=== PATIENT | male | born 1965 | race Hispanic/Latino ===

== ENCOUNTER 2021-03-19 08:34 | Emergency (ER) | payer MEDICARE ==
[2021-03-19 08:43] VITALS: BP 131/76
--- NOTE | 2021-03-19 14:44 | Emergency Department Report ---
Blank Doc - Documentation Documentation: This is a 55-year-old male that was consulted with caregiver for hypotension w hich was about 70/40. Caregiver stated that ambulance came and and blood pressure was also low. home appliance washing machine mechanic stated that patient has cloudy dark stools. Otherwise caregiver denies any symptoms or complaints. 1- This is a initial triage assessment/medical screening only. Full assessment and work-up will be completed once the patient is in proper hospital gown, ED bed and in a private room setting. This initial assessment/diagnostic orders/clinical plan/ treatment(s) is/are subject to change based on pt's health status, clinical progression and re-assessment by fellow clinical providers in the ED. Further treatment and workup at subsequent clinical providers discretion. Patient/guardians urged not to elope from ED as their condition may be serious if not clinically assessed and managed. 2-labs 3-UA 4-EKG The patient was evaluated in the emergency department for symptoms described in the history of present illness. He/she was evaluated in the context of the global COVID-19 pandemic, which necessitated consideration that the patient might be at risk for infection with the virus that causes COVID-19. Institutional protocols and algorithms that pertain to the evaluation of patien ts at risk for COVID-19 are in a state of rapid change based on information released by regulatory bodies including the CDC and federal and state organizations. These policies and algorithms were followed during the patient's care in the emergency department. Please note that these policies, procedures and recommendations changed on a rapid basis.
[2021-03-19 16:01] LABS: Basophils % (Auto) 0.3 % (0.0-1.8); Eosinophils % (Auto) 0.4 % (0.0-4.3); Hematocrit 41.1 % (35.5-45.6); Hemoglobin 13.5 gm/dl (11.8-15.2); Lymphocytes # (Auto) 1.2 K/mm3 (1.2-5.4); Lymphocytes % (Auto) 11.7 % (13.4-35.0); Mean Corpuscular HGB Conc 33 % (32-34); Mean Corpuscular Volume 86 fl (84-94); Monocytes # (Auto) 0.6 K/mm3 (0.0-0.8); Monocytes % (Auto) 6.2 % (0.0-7.3); Platelet Count 293 K/mm3 (140-440); Red Blood Count 4.81 M/mm3 (3.65-5.03); Red Cell Distribution Width 14.5 % (13.2-15.2)
[2021-03-19 16:09] LABS: INR 0.92 (0.87-1.13)
[2021-03-19 16:10] LABS: Partial Thromboplastin Time 31.9 Sec. (24.2-36.6)
[2021-03-19 16:22] LABS: Alanine Aminotransferase 6 units/L (7-56); Albumin 4.3 g/dL (3.9-5); BUN/Creatinine Ratio 27; Blood Urea Nitrogen 24 mg/dL (9-20); Calcium 8.8 mg/dL (8.4-10.2); Hemolysis Index 9
--- NOTE | 2021-03-19 23:14 | Emergency Department Report ---
ED General Adult HPI - General Chief complaint: Weakness Stated complaint: Hypotensive PUI?: No Time Seen by Provider: 03/19/21 14:48 Source: patient, family ([facility] caregiver), EMS Mode of arrival: Stretcher Limitations: No Limitations, Other (dementia) - History of Present Illness Initial comments: Chief complaint: Low blood pressure HPI: This is a 55-year-old male with history of dementia, hypothyroidism, BPH who presents with low blood pressure readings. Blood pressure 80/40, 96/56 at personal halfway according to verbal report. Caregiver Krista was extremely helpful. She gave a full history. I spoke with her per phone. He has been in normal state of health. He has been at the personal halfway for over 1 year. She gave a list of his medications which included Synthroid, Zyprexa, Linzess, finasteride, Flomax, clozapine, antihistamine for allergies.. Mr. Costa does not have any complaints. He does not have a history of high blood pressure. He is not on antihypertensive medication. -: days(s) (Two low blood pressure readings at personal halfway) Severity scale (0 -10): 0 Consistency: now resolved Improves with: none Worsens with: none Associated Symptoms: denies other symptoms - Related Data Allergies Allergy/AdvReac Type Severity Reaction Status Date / Time No Known Allergies Allergy Unverified 03/19/21 08:43 ED Review of Systems ROS: Stated complaint: Hypotensive Other details as noted in HPI Comment: Unobtainable due to pts medical conditions (Patient able to say yes or no. He denies any complaints. Limited history due to dementia.) ED Past Medical Hx - Past Medical History Previous Medical History?: Yes Hx Dementia: Yes Additional medical history: BPH, hypothyroidism - Surgical History Additional Surgical History: Unable to obtain - Family History Family history: no significant - Social History Smoking Status: Never Smoker ED Physical Exam - General Limitations: No Limitations General appearance: alert, in no apparent distress, other (Pleasant jovial no acute distress nontoxic-appearing) - Head Head exam: Present: atraumatic, normocephalic - Eye Eye exam: Present: normal appearance - ENT ENT exam: Present: mucous membranes moist - Neck Neck exam: Present: normal inspection, full ROM - Respiratory Respiratory exam: Present: normal lung sounds bilaterally. Absent: respiratory distress, wheezes, rales, rhonchi - Cardiovascular Cardiovascular Exam: Present: regular rate, normal rhythm, normal heart sounds. Absent: systolic murmur, diastolic murmur, rubs, gallop - GI/Abdominal GI/Abdominal exam: Present: soft, normal bowel sounds. Absent: distended, tenderness, guarding, rebound - Rectal Rectal exam: Present: deferred - Extremities Exam Extremities exam: Present: normal inspection - Back Exam Back exam: Present: normal inspection - Neurological Exam Neurological exam: Present: alert, other (Oriented to name) - Psychiatric Psychiatric exam: Present: normal affect, normal mood - Skin Skin exam: Present: warm, dry, intact, normal color. Absent: rash ED Course Vital Signs 03/19/21 08:37 Temperature 98.1 F Pulse Rate 84 Respiratory 16 Rate Blood Pressure 131/76 [Right] O2 Sat by Pulse 95 Oximetry ED Medical Decision Making - Lab Data Result diagrams: 03/19/21 15:36 03/19/21 15:36 Abnormal Lab Results 03/19/21 03/19/21 03/19/21 15:36 15:36 15:36 WBC 10.5 RBC 4.81 Hgb 13.5 Hct 41.1 MCV 86 MCH 28 MCHC 33 RDW 14.5 Plt Count 293 Lymph % (Auto) 11.7 L Mayes % (Auto) 6.2 Eos % (Auto) 0.4 Baso % (Auto) 0.3 Lymph # (Auto) 1.2 Mayes # (Auto) 0.6 Eos # (Auto) 0.0 Baso # (Auto) 0.0 Seg Neutrophils % 81.4 H Seg Neutrophils # 8.5 H PT 13.4 INR 0.92 APTT 31.9 Sodium 137 Potassium 4.7 Chloride 103.4 Carbon Dioxide 19 L Anion Gap 19 BUN 24 H Creatinine 0.9 Estimated GFR > 60 BUN/Creatinine Ratio 27 Glucose 102 H Calcium 8.8 Magnesium Total Bilirubin 0.20 AST 16 ALT 6 L Alkaline Phosphatase 114 Total Protein 8.3 H Albumin 4.3 Albumin/Globulin Ratio 1.1 03/19/21 15:36 WBC RBC Hgb Hct MCV MCH MCHC RDW Plt Count Lymph % (Auto) Mayes % (Auto) Eos % (Auto) Baso % (Auto) Lymph # (Auto) Mayes # (Auto) Eos # (Auto) Baso # (Auto) Seg Neutrophils % Seg Neutrophils # PT INR APTT Sodium Potassium Chloride Carbon Dioxide Anion Gap BUN Creatinine Estimated GFR BUN/Creatinine Ratio Glucose Calcium Magnesium 2.20 Total Bilirubin AST ALT Alkaline Phosphatase Total Protein Albumin Albumin/Globulin Ratio - Medical Decision Making Abnormal blood pressure readings at home. Patient has been normotensive throughout his 14-hour observation emergency department. Work-up unremarkable. CBC chemistry PT PTT within normal limits. I reviewed [facility] report from [facility]. Patient was ambulatory at the scene. Patient ambulated to the stretcher. Documented vital signs per EMS blood pressu re 122/80, pulse 87 respiratory rate 14. Upon arrival patient was normotensive with blood pressure 131/76. I suspect adverse effect of medication. Patient is on 2 medications for BPH including finasteride and Flomax. I urged caregiver to remove 1 of these medications. Also suspect that patient had abnormal sinus blood pressure cuff. Likely had an appropriate likely has 2 large blood pressure cuff. Second consideration to large blood pressure cuff. Critical care attestation.: If time is entered above; I have spent that time in minutes in the direct care of this critically ill patient, excluding procedure time. ED Disposition Clinical Impression: Medication adverse effect Disposition: 01 HOME / SELF CARE / HOMELESS Is pt being admited?: No Does the pt Need Aspirin: No Condition: Stable Additional Instructions: Finasteride and Flomax both can cause hypotension. Please consider stopping 1 of these medications. Referrals: PRIMARY CARE, [Primary Care Provider] - 3-5 Days
== END 2021-03-19 23:36 | disposition home or self-care (01) ==
LOC: ED 08:34
DX: R03.1 Nonspecific low blood-pressure reading (principal); T50.905A Adverse effect of unspecified drugs, medicaments and biological substances, initial encounter; Y92.89 Other specified places as the place of occurrence of the external cause
CPT/HCPCS: 36415; 80053; 83735; 85025; 85610; 85730; 99283

== ENCOUNTER 2021-03-27 07:51 | Emergency (ER) | payer MEDICARE ==
[2021-03-27 08:51] VITALS: BP 129/76
--- NOTE | 2021-03-27 11:07 | Emergency Department Report ---
ED Fall HPI - General Chief Complaint: Fall Stated Complaint: FALL Time Seen by Provider: 03/27/21 10:51 Source: patient Mode of arrival: Ambulatory Limitations: No Limitations - History of Present Illness Initial Comments: Patient is a 55-year-old male presents emergency room complaints of a fall that occurred 4 days ago. Patient states that he got out of the shower and was drying himself off and was putting on his pants when he fell backwards. He states that he hit his lower back against the bathroom floor. He denies any other injury. He denies hitting his head, loss of consciousness, vomiting, vision changes, numbness, unilateral weakness, bowel or bladder incontinence after the fall. No allergies to medications. - Related Data Previous Rx's Medication Instructions Recorded Last Taken Type Acetaminophen [Tylenol] 650 mg PO Q8HR PRN #20 cap 03/27/21 Unknown Rx Allergies Allergy/AdvReac Type Severity Reaction Status Date / Time No Known Allergies Allergy Unverified 03/19/21 08:43 ED Review of Systems ROS: Stated complaint: FALL Other details as noted in HPI Comment: All other systems reviewed and negative ED Past Medical Hx - Past Medical History Hx Dementia: Yes Additional medical history: BPH, hypothyroidism - Surgical History Additional Surgical History: Unable to obtain - Social History Smoking Status: Never Smoker - Medications Home Medications: Home Medications Medication Instructions Recorded Confirmed Last Taken Type Acetaminophen [Tylenol] 650 mg PO Q8HR PRN #20 cap 03/27/21 Unknown Rx ED Physical Exam - General Limitations: No Limitations General appearance: alert, in no apparent distress - Head Head exam: Present: atraumatic, normocephalic - Eye Eye exam: Present: normal appearance, PERRL, EOMI - ENT ENT exam: Present: mucous membranes moist - Neck Neck exam: Present: normal inspection, full ROM. Absent: tenderness, meningismus - Respiratory Respiratory exam: Present: normal lung sounds bilaterally, other (no rib ttp bilaterally). Absent: respiratory distress, wheezes, rales, rhonchi, stridor, chest wall tenderness, accessory muscle use, decreased breath sounds, prolonged expiratory - Cardiovascular Cardiovascular Exam: Present: regular rate, normal rhythm, normal heart sounds. Absent: systolic murmur, diastolic murmur, rubs, gallop - Back Exam Back exam: Present: normal inspection, full ROM, paraspinal tenderness (lumbar), vertebral tenderness (lumbar) - Neurological Exam Neurological exam: Present: alert, other (oriented to person). Absent: motor sensory deficit - Psychiatric Psychiatric exam: Present: normal affect, normal mood - Skin Skin exam: Present: warm, dry, intact ED Course Vital Signs 03/27/21 08:50 Temperature 97.4 F L Pulse Rate 85 Respiratory 16 Rate Blood Pressure 129/76 [Right] O2 Sat by Pulse 98 Oximetry ED Medical Decision Making - Radiology Data Radiology results: report reviewed Ordering Physician: MO GILL Date of Service: 03/27/21 Procedure(s): XR spine lumbosacral 2-3V Accession Number(s): [id number] cc: MO GILL Fluoro Time In Minutes: LUMBOSACRAL SPINE 3 VIEWS INDICATION: fall, low back pain. COMPARISON: None. IMPRESSION: Normal alignment. No significant discogenic DJD or facet arthropathy. Mild symmetric degenerative changes are noted at the SI joints. No acute osseous or soft tissue abnormality. Signer Name: Dawson Wolfe Jr, MD Signed: 03/27/2021 11:16 AM Workstation Name: [id number] Transcribed By: TTR Dictated By: DAWSON WOLFE JR, MD Electronically Authenticated By: DAWSON WOLFE JR, MD Signed Date/Time: 03/27/21 1116 DD/ 1115 TD/TT: - Medical Decision Making Patient is a 55-year-old male presents emergency room complaints of a fall that occurred 4 days ago. Patient states that he got out of the shower and was drying himself off and was putting on his pants when he fell backwards. He states that he hit his lower back against the bathroom floor. He denies any other injury. He denies hitting his head, loss of consciousness, vomiting, vision changes, numbness, unilateral weakness, bowel or bladder incontinence after the fall. No allergies to medications. Vitals are stable. On exam patient has bilateral paraspinal and mild midline lumbar tenderness palpation, no step-offs, no deformities, no focal neuro deficits, ambulatory without difficulty. XR lumbar spine: IMPRESSION: Normal alignment. No significant discogenic DJD or facet arthropathy. Mild symmetric degenerative changes are noted at the SI joints. No acute osseous or soft tissue abnormality. Patient has history of dementia and is oriented to himself, this is patient's baseline according to chart review. Discussed all findings with patient. Advised patient please take medication as prescribed as needed. Follow-up with your primary care doctor. Follow-up with a commercial marketing specialist if symptoms or not improving. Return to emergency room for any new or worsening symptoms. Critical care attestation.: If time is entered above; I have spent that time in minutes in the direct care of this critically ill patient, excluding procedure time. ED Disposition Clinical Impression: Fall Qualifiers: Encounter type: initial encounter Qualified Code(s): W19.XXXA - Unspecified fall, initial encounter Back pain Qualifiers: Back pain location: low back pain Chronicity: acute Back pain laterality: bilateral Sciatica presence: without sciatica Qualified Code(s): M54.50 - Low back pain, unspecified Disposition: 01 HOME / SELF CARE / HOMELESS Is pt being admited?: No Does the pt Need Aspirin: No Condition: Stable Instructions: Acute Back Pain, Adult Additional Instructions: please take medication as prescribed as needed. Follow-up with your primary care doctor. Follow-up with a commercial marketing specialist if symptoms or not improving. Return to emergency room for any new or worsening symptoms. Prescriptions: Acetaminophen [Tylenol] 650 mg PO Q8HR PRN #20 cap PRN Reason: pain Referrals: PRIMARY CAREMD [Primary Care Provider] - 3-5 Days JS PATRICIA II, MD [Staff Physician] - 3-5 Days Time of Disposition: 11:24 Print Language: BELARUSIAN
--- NOTE | 2021-03-27 11:21 | XRay Report ---
LUMBOSACRAL SPINE 3 VIEWS INDICATION: fall, low back pain. COMPARISON: None. IMPRESSION: Normal alignment. No significant discogenic DJD or facet arthropathy. Mild symmetric de generative changes are noted at the SI joints. No acute osseous or soft tissue abnormality. Signer Name: Dawson Wolfe Jr, MD Signed: 03/27/2021 11:16 AM Workstation Name: [id number]
== END 2021-03-27 11:45 | disposition home or self-care (01) ==
LOC: ED 07:51
DX: M54.50 Low back pain, unspecified (principal); W19.XXXA Unspecified fall, initial encounter; Y93.89 Activity, other specified; Y92.89 Other specified places as the place of occurrence of the external cause; Y99.8 Other external cause status
CPT/HCPCS: 72100; 99283

== ENCOUNTER 2021-05-01 09:41 | Emergency (ER) | payer MEDICARE ==
[2021-05-01 09:44] VITALS: BP 116/72
[2021-05-01] MEDS ORDERED: SODIUM CHLORIDE 0.9% 1000 ML 1,000 ML IV ONE (10:16)
[2021-05-01] MEDS ORDERED: MORPHINE 4 MG/1 ML INJ IV ONE (10:16)
[2021-05-01] MEDS ORDERED: ONDANSETRON 4 MG/2 ML INJ IV ONE (10:16)
--- NOTE | 2021-05-01 10:20 | Emergency Department Report ---
ED Abdominal Pain HPI - General Chief Complaint: Back Pain/Injury Stated Complaint: R SIDE BACK PAIN Time Seen by Provider: 05/01/21 10:07 Source: patient, EMS Mode of arrival: Stretcher Limitations: Altered Mental Status - History of Present Illness Initial Comments: Patient is 55 years old male with history of dementia. Patient brought to the emergency room via EMS for evaluation of back pain. Upon my interviewing the patient patient is pointing to the right upper quadrant area stating that is bothering him since this morning. He denied any other pain. He denied nausea vomiting or diarrhea. He also denied any fever or chills. MD Complaint: abdominal pain -: This morning Location: RUQ Migration to: no migration Severity scale (0 -10): 5 - Related Data Previous Rx's Medication Instructions Recorded Last Taken Type Acetaminophen [Tylenol] 650 mg PO Q8HR PRN #20 cap 03/27/21 Unknown Rx Allergies Allergy/AdvReac Type Severity Reaction Status Date / Time No Known Allergies Allergy Unverified 03/19/21 08:43 ED Review of Systems ROS: Stated complaint: R SIDE BACK PAIN Other details as noted in HPI Comment: All other systems reviewed and negative Constitutional: denies: chills, fever Respiratory: denies: cough, shortness of breath, SOB with exertion Cardiovascular: denies: chest pain Gastrointestinal: abdominal pain. denies: nausea, vomiting, diarrhea Musculoskeletal: back pain Neurological: denies: weakness ED Past Medical Hx - Past Medical History Hx Dementia: Yes Additional medical history: BPH, hypothyroidism - Surgical History Additional Surgical History: Unable to obtain - Social History Smoking Status: Never Smoker - Medications Home Medications: Home Medications Medication Instructions Recorded Confirmed Last Taken Type Acetaminophen [Tylenol] 650 mg PO Q8HR PRN #20 cap 03/27/21 Unknown Rx ED Physical Exam - General Limitations: Altered Mental Status General appearance: alert, in no apparent distress - Head Head exam: Present: atraumatic, normocephalic, normal inspection - Eye Eye exam: Present: normal appearance - ENT ENT exam: Present: mucous membranes dry - Neck Neck exam: Present: normal inspection, full ROM. Absent: tenderness, meningismus - Respiratory Respiratory exam: Present: normal lung sounds bilaterally - Cardiovascular Cardiovascular Exam: Present: regular rate, normal rhythm, normal heart sounds - GI/Abdominal GI/Abdominal exam: Present: soft, normal bowel sounds. Absent: distended, tenderness, guarding, rebound, rigid, organomegaly, mass, bruit, pulsatile mass - Extremities Exam Extremities exam: Present: normal inspection, full ROM, normal capillary refill. Absent: tenderness - Back Exam Back exam: Present: normal inspection, full ROM. Absent: CVA tenderness (R), CVA tenderness (L) - Neurological Exam Neurological exam: Present: alert, oriented X3, CN II-XII intact - Psychiatric Psychiatric exam: Present: normal mood - Skin Skin exam: Present: warm, intact, normal color ED Course Vital Signs 05/01/21 05/01/21 09:41 11:25 Temperature 98 F Pulse Rate 94 H Respiratory 18 Rate Blood Pressure 116/72 [Left] O2 Sat by Pulse 98 99 Oximetry ED Medical Decision Making - Lab Data Result diagrams: 05/01/21 10:35 05/01/21 10:35 - Radiology Data Radiology results: report reviewed CT abdomen pelvis w con INDICATION: Abdominal Pain OMNI 300 100 ML. COMPARISON: None TECHNIQUE: Abdominal and pelvic CT exam performed. All CT scans at this location are performed using CT dose reduction for ALARA by means of automated exposure control. FINDINGS: CT ABDOMEN and PELVIS: Lung Bases: D ependent atelectasis. Liver: No significant abnormality. Biliary: No significant abnormality. Spleen: No significant abnormality. Pancreas: No significant abnormality. Adrenals: No significant abnormality. Kidneys: Severe bilateral hydroureteronephrosis with urothelial enhancment. Bladder: Significant circumferential thickening. Suprapubic catheter in place. Lymphatics: No lymphadenopathy. Vasculature: No significant abnormality. Bowel: No significant abnormality. Appendix is nonvisualized. However, no inflammatory changes in the right lower quadrant to suggest appendicitis. Pelvis: No significant abnormality. Osseous Structures: No aggressive osseous lesion. Additional Findings: None IMPRESSION: 1. Significant circumferential bladder thickening concerning for cystitis. Severe bilateral hydroureteronephrosis with urothelial enhancment which could be related to ascending infection. Correlate for urinalysis. Signer Name: Sherwin Gloria MD Signed: 05/01/2021 11:18 AM Workstation Name: [id number] - Medical Decision Making Patient is 55 years old male with history of dementia. Patient brought to the emergency room via EMS for evaluation of back pain. Upon my interviewing the patient patient is pointing to the right upper quadrant area stating that is bothering him since this morning. He denied any other pain. He denied nausea vomiting or diarrhea. He also denied any fever or chills. Patient received morphine, Zofran and normal saline. Labs showed a leukocytosis of 12,000. CT abdomen and pelvis with IV contrast showed right pyelonephritis and thus most likely the cause of patient pain. Patient received Rocephin 1 g IV. Urinalysis showed UTI with white blood cells of more than 118. Patient given prescription for ciprofloxacin and advised to follow-up with his primary doctor in the next 2 to 3 days and to return to the ER if he develop any new symptoms. Critical care attestation.: If time is entered above; I have spent that time in minutes in the direct care of this critically ill patient, excluding procedure time. ED Disposition Clinical Impression: Acute abdominal pain, Acute pyelonephritis, UTI (urinary tract infection) Disposition: 01 HOME / SELF CARE / HOMELESS Is pt being admited?: No Condition: Stable Instructions: Pyelonephritis, Adult, Urinary Tract Infection, Adult, [id number], Abdominal Pain, Adult, [id number] Referrals: PRIMARY CARE, [Primary Care Provider] - 3-5 Days
[2021-05-01 11:05] LABS: Basophils # (Auto) 0.1 K/mm3 (0.0-0.1); Basophils % (Auto) 0.7 % (0.0-1.8); Eosinophils # (Auto) 0.3 K/mm3 (0.0-0.4); Eosinophils % (Auto) 2.4 % (0.0-4.3); Hematocrit 36.8 % (35.5-45.6); Lymphocytes # (Auto) 1.5 K/mm3 (1.2-5.4); Lymphocytes % (Auto) 12.2 % (13.4-35.0); Mean Corpuscular HGB Conc 35 % (32-34); Mean Corpuscular Volume 85 fl (84-94); Monocytes # (Auto) 1.2 K/mm3 (0.0-0.8); Monocytes % (Auto) 9.7 % (0.0-7.3); Red Blood Count 4.33 M/mm3 (3.65-5.03); Red Cell Distribution Width 14.5 % (13.2-15.2)
[2021-05-01 11:09] LABS: Platelet Count 243 K/mm3 (140-440)
[2021-05-01 11:20] LABS: Alanine Aminotransferase 11 units/L (7-56); Albumin 3.4 g/dL (3.9-5); BUN/Creatinine Ratio 17; Blood Urea Nitrogen 22 mg/dL (9-20); Calcium 9.2 mg/dL (8.4-10.2); Hemolysis Index 81
[2021-05-01 11:49] LABS: Bilirubin,Direct < 0.2 mg/dL (0-0.2)
[2021-05-01] MEDS ORDERED: cefTRIAXone/NS 1 GM/50 ML 1 GM/50 ML BAG IV ONE (12:40)
[2021-05-01 13:15] LABS: Bacteria,Urine 1+ /HPF (Negative); Bilirubin,Urine NEG (Negative); Blood,Urine SM (Negative); Color,Urine Yellow (Yellow); Mucus,Urine FEW /HPF; Urobilinogen,Urine < 2.0 mg/dL (<2.0)
[2021-05-01 13:17] LABS: Protein,Urine >500 mg/dL (Negative); WBC,Urine > 182.0 /HPF (0.0-6.0)
--- NOTE | 2021-05-01 13:27 | Cat Scan Report ---
CT abdomen pelvis w con INDICATION: Abdominal Pain OMNI 300 100 ML. COMPARISON: None TECHNIQUE: Abdominal and pelvic CT exam performed. All CT scans at this location are performed using CT dose reduction for ALARA by means of automated exposure control. FINDINGS: CT ABDOMEN and PELVIS: Lung Bases: Dependent atelectasis. Liver: No significant abnormality. Biliary: No significant abnormality. Spleen: No significant abnormality. Pancreas: No significant abnormality. Adrenals: No significant abnormality. Kidneys: Severe bilateral hydroureteronephrosis with urothelial enhancment. Bladder: Significant circumferential thickening. Suprapubic catheter in place. Lymphatics: No lymphadenopathy. Vasculature: No significant abnormality. Bowel: No significant abnormality. Appendix is nonvisualized. However, no inflammatory changes in th e right lower quadrant to suggest appendicitis. Pelvis: No significant abnormality. Osseous Structures: No aggressive osseous lesion. Additional Findings: None IMPRESSION: 1. Significant circumferential bladder thickening concerning for cystitis. Severe bilateral hydrouret eronephrosis with urothelial enhancment which could be related to ascending infection. Correlate for urinalysis. Signer Name: Sherwin Gloria MD Signed: 05/01/2021 12:18 PM Workstation Name: [id number]
== END 2021-05-01 17:07 | disposition home or self-care (01) ==
LOC: ED 09:41
DX: N10 Acute pyelonephritis (principal); N39.0 Urinary tract infection, site not specified; R10.11 Right upper quadrant pain; F03.90 Unspecified dementia, unspecified severity, without behavioral disturbance, psychotic disturbance, mood disturbance, and anxiety
CPT/HCPCS: 36415; 74177; 80048; 80076; 81001; 83690; 85025; 96361; 96365; 96375; 99284; J0696; J2270; J2405; J7030; Q9967; Q0162